=== PATIENT | male | born 1990 | race Caucasian/White ===

== ENCOUNTER 2019-10-07 13:03 | Outpatient (CLI) | payer OTHER ==
[2019-10-08 11:36] VITALS: BP 123/73
--- NOTE | 2019-10-08 11:36 | SLEEP CARE CONSULTATION ---
Information from patient questionnaire entered by Halley White. I have reviewed and concur with the information entered by Halley White. This document represents the service I personally performed and the decisions made by me, Luis Armando Gallo MD, [facility]. History of Present Illness Reason for Visit: New patient Chief Complaint: reports: Unrefreshed sleep, Snoring, Excessive daytime sleepiness Duration of Symptoms: years Usual bedtime: 2230 Time it takes to fall asleep: 2 minutes Snores at night: Yes Observed to quit breathing while asleep: No Sleeps alone due to snoring: No (but has considered) Number of times waking at night: 1-2 Reasons for waking at night: reports: Bathroom, Other (tossing and turning) Toss, Turn, or Twitch while sleeping: Yes Recalls having dreams: Yes Usually gets out of bed at: 8212-9706 Feels refreshed in the morning: No Morning headache: No Sleepy or fatigued during the day: Yes Ever fallen asleep while driving: Yes Takes day naps: Yes Dreams during day naps: Yes Prior sleep studies: No Additional HPI information: I had the pleasure of seeing Mr. Kirkland today regarding the possibility of him having a sleep disorder. As you know, he is a 29 year old gentleman who complains of loud snore, unrefreshed sleep, and excessive daytime sleepiness for the past few years. The patient tells me that he normally goes to bed around 10:30 pm, and it takes him approximately 2 minutes to fall asleep. He has been told that he snores loudly and irregularly at night. He has also been observed to stop breathing in his sleep. His can still sleep in the same bed. He can recall waking up on the average of 1 - 2 times during the night. Most of the time he wakes up because of having to use the bathroom. He has awakened occasionally because of his own snoring, choking, and having to gasp for air. There is a lot of tossing and turning in his sleep. No somniloquy (sleep talking) or somnambulism (sleep walking). Generally he can recall having dreams. In the morning he usually gets up out of the bed around 6 - 6:30 a.m. not feeling refreshed nor rested. He usually does not have a morning headache. During the day he complains of feeling sleepy and fatigued. His score on Kinston Sleepiness Scale is 17 out of 24. He has fallen asleep while driving and has gone out of the alisa. He usually takes naps during the day. Upon falling asleep during the day he reports having dreams. He has never had sleep paralysis, experienced cataplexy or symptoms of restless leg syndrome. He reports having impaired concentration during the day. 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 Patient is and lives in [place]. Have you smoked in the past 12 months: No Alcohol use: Yes Alcohol amount and frequency: rarely Caffeine use: Yes Caffeine amount and frequency: rarely Family History Family history of sleep disordered breathing: No Allergies and Home Medications Drug allergies reviewed: Yes Home medication list reviewed: Yes Review of Systems Weight gain over past 5 years: 20 Cardiovascular: denies: high blood pressure, palpitations, chest pain, irregular heart rate or pulse, leg or foot swelling, have to sleep sitting up, other Respiratory: denies: shortness of breath, wheeze, sputum production, chronic cough, other Gastrointestinal: denies: heartburn, difficulty swallowing, nausea, vomitting, diarrhea, abdominal pain, other Urinary: denies: incontinence, frequency, urgency, impotence, other Neurological: reports: headaches Psychiatric: denies: Attention Deficit Hyperactivity, anxiety, depression, mood disorder, claustrophobia, other Ear/Nose/Throat: reports: wisdom teeth removed Endocrine: denies: thyroid disease, history of goiter, sluggishness, too hot or cold, excessive thirst, increased appetite, increased urination, unexplained weakness, other Musculoskeletal: denies: joint pain, neck pain, back pain, joint swelling, muscle pain or cramping, mobility problems, other Immunologic: denies: sneezing, rash, itching, allergies to food or environment, other Physical Exam Vital signs obtained and entered by: Dr. Gallo Blood Pressure: 123/73 Cuff size: regular Heart Rate: 55 O2 Saturation: 98 Height: 5 ft 10 in Weight: 230 lb Body Mass Index: 33.0 BMI Classification: Obesity Class 1 Neck circumference: 17 Mood/affect: Normal HEENT: No craniofacial malformation Nostrils: patent to airflow Turbinates: normal Septum: midline Mouth and throat: narrow oropharynx Soft palate: long Hard palate: normal Uvula: normal Uvula visualization: 50% Mallampati Class II Tongue: normal in size Tonsils: small Chin and jaw: normal size and position Neck: normal w/o lymphadenopathy or thyromegaly Heart: regular rate and rhythm Lungs: clear bilaterally Abdomen: soft, non-tender Extremities: no edema or clubbing Neurologic: intact, no focal deficits Impression and Plan IMPRESSION: 1. Obstructive Sleep Apnea-Hypopnea Syndrome, as suggested by history of loud and irregular snoring, observed cessation of breath while asleep, frequent awakenings during the night, unrefreshed sleep, cognitive impairment, and daytime hypersomnolence. Narrow oropharynx and obesity are common predisposing factors for obstructive sleep apnea-hypopnea syndrome. Pathophysiology of sleep-disordered breathing was discussed. I recommend proceeding to polysomnography to confirm the diagnosis and to assess severity. If he has significant sleep disordered breathing, a manual CPAP titration study will also be performed to find the optimal treatment pressure. I informed the patient of what the sleep studies involve and after some discussion, he agreed to proceed. Plan: 1. Schedule polysomnography 2. Avoid long distance driving or when feeling sleepy. 3. Avoid alcohol, sedative and muscle relaxant around bedtime. 4. Attempt to lose weight. 5. Return in 1 to 2 weeks after the study to discuss results and initiate therapy. I spent 100% of this visit face to face with the patient with greater than 50% of this was spent time counseling the patient and coordination of care.
== END 2019-10-07 13:04 | disposition home or self-care (01) ==
LOC: SC 13:03
PROVIDERS: ATTEND Internal Medicine Pulmonary Disease
DX: R06.83 Snoring (principal); R06.81 Apnea, not elsewhere classified; G47.8 Other sleep disorders; R41.89 Other symptoms and signs involving cognitive functions and awareness; G47.10 Hypersomnia, unspecified; E66.9 Obesity, unspecified; Z68.33 Body mass index [BMI] 33.0-33.9, adult
CPT/HCPCS: 99203; 99212

== ENCOUNTER 2019-10-09 19:31 | Outpatient (CLI) | payer OTHER | END 2019-10-09 19:32 | disposition home or self-care (01) | LOC: SC 19:31 | PROVIDERS: ATTEND Internal Medicine Pulmonary Disease | DX: R06.83 Snoring (principal); R00.1 Bradycardia, unspecified; G47.10 Hypersomnia, unspecified; G47.8 Other sleep disorders | CPT/HCPCS: 95810 ==

== ENCOUNTER 2019-10-28 09:48 | Outpatient (CLI) | payer OTHER ==
--- NOTE | 2019-10-28 10:16 | SLEEP CARE CONSULTATION ---
Information from patient questionnaire entered by Halley White. I have reviewed and concur with the information entered by Halley White. This document represents the service I personally performed and the decisions made by me, Luis Armando Gallo MD, [facility]. History of Present Illness Initial [place] Sleepiness Scale score: 17 Current [place] Sleepiness Scale score: 16 Additional HPI information: HPI: Mr. Kirkland returned for follow up of the sleep study he had on 10/13/19. The polysomnography showed that the patient had normal sleep efficiency. The sleep architecture was abnormal for sleep fragmentation and reduced amount of time spent in slow wave sleep (N3). Respiratory monitoring showed no significant sleep disordered breathing (AHI = 1.5) or hypoxia (macy oxygen saturation of 90%). The few respiratory events occurred mainly during supine sleep (supine AHI = 3.4; non-supine = 0.23). Snore was light to loud in intensity. There was no significant periodic leg movement of sleep. Cardiac rhythm was normal sinus rhythm with occasional mild sinus bradycardia (minimal heart rate of 39 beats per minute).. No abnormal behavior (parasomnia) observed during the night. The patient was informed of these findings. I explained to him that besides the sinus bradycardia, the sleep study was normal. The patient heart rate during the day in also in the 50s. Allergies and Home Medications Drug allergies reviewed: Yes Home medication list reviewed: Yes Physical Exam Height: 5 ft 10 in Weight: 230 lb Body Mass Index: 33.0 BMI Classification: Obesity Class 1 Impression and Plan IMPRESSION: 1. Primary Snore (ICD-10 R06.83), light to loud, but no significant sleep disordered breathing Treatment for snore includes oral appliance therapy and upper airway surgery. The patient was recommended to see a dentist for a mandibular advancing device. Weight loss also helps. 2. Sinus bradycardia - ICD R00.1. Recommend further workup and treatment as appropriate. 3. Hypersomnia (ICD G47.10), most likely due to slightly insufficient night sleep. In reviewing his sleep diary, he is getting about 7-7.5 hours of sleep during the work week. He was recommended to go to sleep earlier to make sure that he gets 8 hours every night. PLAN: 1. Follow up with his primary care provider. 2. Allow more time for sleeping if sleepy during the day. 3. Return for follow up on as needed basis. Follow up with Sleep Care in: as needed Follow up with: PCP I spent 100% of this visit face to face with the patient with greater than 50% of this was spent time counseling the patient and coordination of care.
== END 2019-10-28 09:49 | disposition home or self-care (01) ==
LOC: SC 09:48
PROVIDERS: ATTEND Internal Medicine Pulmonary Disease
DX: R06.83 Snoring (principal); E66.9 Obesity, unspecified; Z68.33 Body mass index [BMI] 33.0-33.9, adult; R00.1 Bradycardia, unspecified; G47.10 Hypersomnia, unspecified
CPT/HCPCS: 99212; 99213